=== PATIENT | female | born 1960 | race Caucasian/White ===

== ENCOUNTER 2020-12-11 17:08 | Emergency (ER) | payer OTHER ==
[~2020-12-11] VITALS: Ht 172.7 cm; Wt 79.4 kg
[2020-12-11 18:55] LABS: URINE BLOOD TRACE (Negative); URINE COLOR YELLOW; URINE GLUCOSE-RANDOM NEGATIVE (Negative); URINE KETONES NEGATIVE (Negative); URINE NITRITE-REFLEX NEGATIVE (Negative); URINE PROTEIN 1+ (Negative); URINE UROBILINOGEN 0.2 E.U./dl (0.2-1.0)
[2020-12-11 19:00] LABS: URINE BILIRUBIN 1+ (Negative); URINE LEUKOCYTES-REFLEX 2+ (Negative)
[2020-12-11 19:01] LABS: ICTOTEST (BILI CONFIRMATORY) Negative (Negative); URINE CLARITY CLOUDY
[2020-12-11 19:08] LABS: SQUAMOUS 4-10 Moderate /LPF (0-3)
[2020-12-11 19:09] LABS: CASTS None Seen /LPF (None Seen); CRYSTALS None Seen /LPF (None Seen); MUCUS 0-3 Light strn/LPF (None Seen); URINE RBC 0-2 Rare /HPF (0-2); URINE WBC-REFLEX >25 Many /HPF (0-5)
[2020-12-11] MEDS ORDERED: XANAX 0.5 MG0.5 M1 PO (21:10)
[2020-12-11] MEDS ORDERED: KLONOPIN1 MG PO (21:13)
[2020-12-11 21:31] VITALS: BP 141/70
== END 2020-12-11 21:32 | disposition home or self-care (01) ==
LOC: M.ERS 17:08
PROVIDERS: Physician Assistant
DX: N73.9 Female pelvic inflammatory disease, unspecified (principal); G24.9 Dystonia, unspecified